=== PATIENT | male | born 1965 | race Caucasian/White ===

== ENCOUNTER 2017-09-11 19:25 | Emergency (ER) | payer BC, OTHER ==
[2017-09-11 20:22] VITALS: BP 127/93; PULSE 85; TEMP 98.8; BMI 28.5
--- NOTE | 2017-09-11 21:03 | PDOC ---
History of Present Illness - History of Present Illness Initial Comments: 09/11/17 21:27 The patient is a 52 year old male with a significant past medical history of DM , HTN, hypercholesterolemia, depression, anxiety, chronic decreased sensation to RLE, who presents to the emergency department with right ankle bruising and swelling. The patient states that today he jumped off his bed and landed on his right ankle. He reports that since his back surgery 3 years ago, his RLE feels numb and tingly in sensation. The patient presents to be evaluated for increased RLE swelling and bruising at the ankle since his fall earlier today. He endorses bilateral lower extremity swelling after exertion and would like to rule out blood clot. Denies chest pain, shortness of breath, headache, and dizziness. Denies any other symptoms. Allergies: NKA Past surgical history: Neck surgery, LUM MORA 05/23/14 Social history: No reported cigarette, alcohol, or drug use. PCP: Dr. Jones Orthopedist: Dr. Clemens <Colleen Reyna - Last Filed: 09/11/17 21:27> - General History Source: Patient Exam Limitations: No Limitations <Xiang Bateman - Last Filed: 09/11/17 21:58> - General Chief Complaint: Injury Stated Complaint: RIGHT ANKLE SWELLING Time Seen by Provider: 09/11/17 19:45 Past History <Colleen Reyna - Last Filed: 09/11/17 21:27> - Past Medical History COPD: No HTN: Yes Psychiatric Problems: Yes (DEPRESSION) - Surgical History Orthopedic Surgery: Yes (cervical spine surgery after a prior accident) - Suicide/Smoking/Psychosocial Hx Smoking History: Never smoked Have you smoked in the past 12 months: No Number of Cigarettes Smoked Daily: 0 Hx Alcohol Use: No Drug/Substance Use Hx: No Substance Use Type: None <Xiang Bateman - Last Filed: 09/11/17 21:58> - Past Medical History Allergies/Adverse Reactions: Allergies Allergy/AdvReac Type Severity Reaction Status Date / Time No Known Allergies Allergy Verified 09/11/17 19:44 Home Medications: Ambulatory Orders Escitalopram Oxalate [Lexapro -] 20 mg PO DAILY 02/12/13 Alprazolam [Xanax] 1 mg PO HS 09/11/17 Amlodipine Besylate [Norvasc -] 10 mg PO DAILY 09/11/17 Review of Systems - Review of Systems Able to Perform ROS?: Yes Comments:: 09/11/17 21:30 GENERAL/CONSTITUTIONAL: No fever or chills. No weakness. HEAD, EYES, EARS, NOSE AND THROAT: No change in vision. No ear pain or discharge. No sore throat. CARDIOVASCULAR: No chest pain or shortness of breath. RESPIRATORY: No cough, wheezing, or hemoptysis. GASTROINTESTINAL: No nausea, vomiting, diarrhea or constipation. GENITOURINARY: No dysuria, frequency, or change in urination. MUSCULOSKELETAL: (+)Right ankle swelling and bruise. No neck or back pain. SKIN: No rash NEUROLOGIC: No headache, vertigo, loss of consciousness, or change in strength/ sensation. ENDOCRINE: No increased thirst. No abnormal weight change. HEMATOLOGIC/LYMPHATIC: No anemia, easy bleeding, or history of blood clots. ALLERGIC/IMMUNOLOGIC: No hives or skin allergy. <Colleen Reyna - Last Filed: 09/11/17 21:27> *Physical Exam - Vital Signs Last Vital Signs Temp Pulse Resp BP Pulse Ox 98.8 F 85 16 127/93 96 09/11/17 19:39 09/11/17 19:39 09/11/17 19:39 09/11/17 19:39 09/11/17 19:39 - Physical Exam Comments: 09/11/17 21:31 GENERAL: Awake, alert, and fully oriented, in no acute distress HEAD: No signs of trauma EYES: PERRLA, EOMI, sclera anicteric, conjunctiva clear ENT: Auricles normal inspection, hearing grossly normal, nares patent, oropharynx clear without exudates. Moist mucosa NECK: Normal ROM, supple, no lymphadenopathy, JVD, or masses EXTREMITIES: 2+ dp pulse. No tenderness to palpation along tibia and fibula. Normal range of motion. No clubbing or cyanosis. No cords or erythema RLE: (+) Chronic decreased sensation unchanged from prior. (+)Mild tenderness to palpation along medial malleolus. (+)Small 3x2cm ecchymosis inferior to the medial malleolus. (+)Mild edema at ankle. NEUROLOGICAL: Cranial nerves II through XII grossly intact. Normal speech, normal gait SKIN: Warm, Dry, normal turgor, no rashes or lesions noted. <Colleen Reyna - Last Filed: 09/11/17 21:27> - Vital Signs Last Vital Signs Temp Pulse Resp BP Pulse Ox 98.8 F 85 16 127/93 96 09/11/17 19:39 09/11/17 19:39 09/11/17 19:39 09/11/17 19:39 09/11/17 19:39 <Xiang Bateman - Last Filed: 09/11/17 21:58> ED Treatment Course - RADIOLOGY Radiology Studies Ordered: Category Date Time Status ANKLE & FOOT-RIGHT* [RAD] Stat Radiology 09/11/17 19:45 Taken DUPLEX VASCUL US-1 LEG [US] Stat Ultrasound 09/11/17 19:45 Ordered <Xiang Bateman - Last Filed: 09/11/17 21:58> Medical Decision Making - Medical Decision Making 09/11/17 21:00 A portion of this note was written by my scribe, under my supervision. Vital Signs Temp Pulse Resp BP Pulse Ox 98.8 F 85 16 127/93 96 09/11/17 19:39 09/11/17 19:39 09/11/17 19:39 09/11/17 19:39 09/11/17 19:39 52 year old male with hx of HTN, DM, HLD, lumbar disc surgery with chronic lower extremity numbness p/w R ankle pain and swelling. Today, the patient went to jump off the bed and felt like he may have landed "strangely" on his right ankle. Able to ambulate afterwards, but started to notice pain and swelling of the right ankle. Denies any changes in numbness weakness. But because of the swelling, he called his neighbor who is a physician and advised pt to be seen in the ER. I suspect the patient likely sprained his ankle. Radiographs reviewed by me, which demonstrates no acute fracture of ankle or foot. Will obtain duplex to r/o DVT. If duplex negative, will encourage RICE therapy for sprain and follow up with orthopedics. 09/11/17 21:57 Duplex reviewed. Negative for DVT. Pt will follow up with orthopedics. <Xiang Bateman - Last Filed: 09/11/17 21:58> *DC/Admit/Observation/Transfer - Attestations Scribe Attestion: 09/11/17 21:32 Documentation prepared by Colleen Reyna, acting as emergency medical services coordinator for Xiang Bateman MD. <Colleen Reyna - Last Filed: 09/11/17 21:27> - Discharge Dispostion Decision to Admit order: No <Xiang Bateman - Last Filed: 09/11/17 21:58> Diagnosis at time of Disposition: Ankle pain Qualifiers: Chronicity: acute Laterality: right Qualified Code(s): M25.571 - Pain in right ankle and joints of right foot - Discharge Dispostion Disposition: HOME Condition at time of disposition: Good - Referrals Referrals: Renetta Jones MD [Primary Care Provider] - Nura Camargo MD [Staff Physician] - - Patient Instructions Printed Discharge Instructions: DI for Ankle Pain Additional Instructions: Your ankle and foot xray is negative for fractures. Your ultrasound is negative for blood clots. Please make an appointment with an orthopedist as an outpatient. Call to schedule an appointment. - Post Discharge Activity
== END 2017-09-11 22:00 | disposition home or self-care (01) ==
LOC: FER 19:25
DX: M25.571 Pain in right ankle and joints of right foot (principal); I10 Essential (primary) hypertension; E11.9 Type 2 diabetes mellitus without complications; E78.5 Hyperlipidemia, unspecified; G89.29 Other chronic pain; F41.8 Other specified anxiety disorders
CPT/HCPCS: 73610-TC-RT-FY; 73630-TC-RT-FY; 93971-TC; 99282-25

== ENCOUNTER 2020-02-17 10:57 | Emergency (ER) | payer BC, OTHER | END 2020-02-17 12:02 | disposition home or self-care (01) | LOC: JVIRT 10:57 | DX: U07.1 COVID-19 (principal) | CPT/HCPCS: C9803; Q3014-GT; U0003 ==